=== PATIENT | male | born 1970 | race Hispanic/Latino ===

== ENCOUNTER 2019-06-09 11:53 | Emergency (ER) | payer OTHER, SELFPAY ==
--- NOTE | ~2019-06-09 | XR_ITS ---
EXAMINATION: XR shoulder LT min 2V EXAM DATE: 06/09/2019 12:12 INDICATION: Fall, left shoulder pain. Initial encounter. TECHNIQUE: The following left shoulder projections obtained: frontal projection with internal rotatio n, frontal projection with external rotation, Grashey, and scapular Y view (4+ views). There is no p rior study for comparison. FINDINGS: No evidence of left shoulder rotator cuff calcific tendinosis. There is wide appearing acromioclavicular joint, and some inferior subluxation on several of the images. Could indicate disru pted acromioclavicular ligament. There are no acute fractures identified. There is mild left shoulder primary osteoarthritis. IMPRESSION: 1. Widened, clavicular joint, suspicious for disruption. Clinical correlation. 2. Mild left shoulder osteoarthritis. Reviewed, dictated and finalized at location A. [employer]
[2019-06-09 11:58] VITALS: BP 146/78; PULSE 71; RESP 16; TEMP 36.7
--- NOTE | 2019-06-09 12:19 | ED.UPPEXIN ---
HPI - Extremity Injury (Upper) General Chief Complaint: Extremity Injury, Upper Stated Complaint: INJURED L SHOULDER Time Seen by Provider: 06/09/19 11:55 Source: patient Mode of arrival: ambulatory Limitations: no limitations History of Present Illness HPI narrative: 49-year-old male presents to urgent care with complaints of left shoulder pain and minimal decreased range of motion since last night. Patient reports that he fell landing on his left shoulder. Patient denies hitting his head or loss of consciousness. Patient has been taking [id number] Aleve with little relief. Patient denies decreased range of motion, swelling, erythema, bruising, headache, dizziness or blurred vision. MD complaint: injury to: left and shoulder Onset (ago): hour(s) (12) Other Extremity Injury: Left: shoulder Place: outdoors Relieving factors: none Exacerbating factors: movement of extremity Context: fall Associated symptoms: denies other symptoms Treatments prior to arrival: NSAIDS Related Data Allergies Allergy/AdvReac Type Severity Reaction Status Date / Time No Known Allergies Allergy Mild Verified 09/25/09 14:35 Review of Systems Review of Systems: All systems reviewed & are unremarkable except as noted in HPI and below Constitutional: Constitutional: Denies chills, Denies fatigue, Denies fever(s) and Denies weakness Cardiovascular: Cardiovascular: Denies chest pain, Denies rapid heart rate, Denies radiating jaw, neck or arm pain and Denies slow heart rate Respiratory: Respiratory: Denies cough, Denies dyspnea and Denies wheezing Gastrointestinal: Gastrointestinal: Denies abdominal pain, Denies constipation, Denies diarrhea, Denies nausea and Denies vomiting Musculoskeletal: Musculoskeletal: Reports arthralgias Comments: left shoulder pain Neurologic: Denies vertigo, Denies dizziness, Denies syncope and Denies focal weakness [facility] Family History Family History Sibling Depression Patient's sister is in good health Family history of alcoholism Father Family history of alcoholism Cerebrovascular accident, Onset Age: 56 Family history of smoking Patient's father is Mother Family history of diabetes mellitus in first degree relative Family history of coronary artery disease Social History Social History Smoking status: Former smoker Alcohol intake: never Exam Const: General: no acute distress and alert Orientation/consciousness: patient oriented x3 Eyes: Pupils: Equal, round and reactive pupils present Neck: Neck: normal visual inspection Resp: Effort & Inspection: normal respiratory effort, not labored and not tachypneic Auscultation: clear to auscultation bilaterally Cardio: Rate: regular rate Rhythm: regular rhythm Heart sounds: no murmurs Back/Spine/Pelvis: Back: no CVA tenderness Skin: General skin exam: normal color, no jaundice and no pallor Rashes: no rashes Wounds: no wounds Neuro: General: patient oriented x3, moves all extremities and no meningeal signs Extrem: General: no pedal edema and no edema Other: pain noted to anterior aspect of left shoulder upon palpation. There is mild amount of decreased range of motion noted. There is 3 cm of bruising noted to anterior aspect of left shoulder. Hand grasp are equal and strong. There is no deformity noted. Course Vital Signs Vital signs: Vital Signs Temperature 36.7 C 06/09/19 11:58 Pulse Rate 71 06/09/19 11:58 Respiratory Rate 16 06/09/19 11:58 Blood Pressure 146/78 H 06/09/19 11:58 Temperature 36.7 C 06/09/19 11:58 Pulse Rate 71 06/09/19 11:58 Respiratory Rate 16 06/09/19 11:58 Blood Pressure 146/78 H 06/09/19 11:58 MDM - Extremity Injury (Upper) MDM Narrative Medical decision making narrative: Left shoulder x-ray discussed with patient. Sling applied to left arm.
== END 2019-06-09 12:43 | disposition home or self-care (01) ==
PROVIDERS: Emergency Provider Nurse Practitioner Family; PCP Emergency Medicine
DX: M25.512 Pain in left shoulder (principal); Z87.891 Personal history of nicotine dependence
CPT/HCPCS: 73030; 99203; A4565; G0463